=== PATIENT | female | born 1995 | race Caucasian/White ===

== ENCOUNTER 2022-06-19 03:49 | Emergency (ER) | payer MEDICAID ==
[~2022-06-19] VITALS: Ht 167.6 cm; Wt 67.1 kg
[2022-06-19 05:08] LABS: MEAN CORPUSCULAR HEMOGLOBIN 26.8 uug (24.7-32.8); MEAN CORPUSCULAR VOLUME 78.3 fL (75.5-95.3); PLATELET COUNT (AUTO) 370 K/uL (179-408)
[2022-06-19 05:15] LABS: CARBON DIOXIDE 30 mmol/L (21-32); CHLORIDE 100 mmol/L (98-107); CREATININE 1.1 mg/dL (0.6-1.3); GLUCOSE 152 mg/dL (74-106); POTASSIUM 3.5 mmol/L (3.5-5.1); UREA NITROGEN, BLOOD 27 mg/dL (7-18)
[2022-06-19 05:20] LABS: ALANINE AMINOTRANSFERASE 45 U/L (14-59); ALKALINE PHOSPHATASE 98 U/L (50-136); ASPARTATE AMINOTRANSFERASE 55 U/L (15-37); BILIRUBIN,DIRECT 0.1 mg/dL (0.0-0.2); BILIRUBIN,TOTAL 0.1 mg/dL (0.2-1.0); ETHANOL < 3 MG/DL (0-0)
[2022-06-19 05:24] LABS: ACETAMINOPHEN < 2.0 ug/mL (10-30)
--- NOTE | 2022-06-19 06:30 | NUR ---
Patient not cooperative for covid swab or obtaining urine sample.
--- NOTE | 2022-06-19 07:01 | NUR ---
Report given to Anival ZAZUETA.
--- NOTE | 2022-06-19 08:20 | NUR ---
Social Work consult was requested for a patient in the emergency room for mental health, homeless and substance abuse resources. Patient is a 26-year-old male. Patient presents with anxious mood and congruent affect. Patient states he does not have a primary contact. Patient states he is homeless, and JOSE MARIA provided the patient with homeless resources for [facility] [place] [address] [place] [address] ([phone]) and [facility] [address] [place] [address] ([phone]). JOSE MARIA gave resources for [address] [address]. Patient was appreciative of the resources. Patient signed the homeless waiver form, and a copy was placed in the chart. Patient denies suicidal or homicidal ideation. Patient states he wants to be discharged from the emergency room. JOSE MARIA provided the patient with mental health resources for [facility] [address] [place] [address] ([phone]). Patient states his plan for discharge is to follow up with the resources provided.
--- NOTE | 2022-06-19 08:33 | NUR ---
PT WAS RE-EVALUATED BY DR DAVIDSON. PT WAS D/C'd TO HOME AFTER CHECK INSPECTOR EVALUATED THE PT. D/C INSTRUCTIONS GIVEN TO THE PT BY CHECK INSPECTOR AND DR DAVIDSON.
[2022-06-19 08:34] VITALS: BP 136/78
== END 2022-06-19 09:07 | disposition home or self-care (01) ==
LOC: ER 03:52
DX: R45.851 Suicidal ideations (principal); F15.10 Other stimulant abuse, uncomplicated; I45.10 Unspecified right bundle-branch block; Z59.02 Unsheltered homelessness; F20.9 Schizophrenia, unspecified; F44.81 Dissociative identity disorder; F17.210 Nicotine dependence, cigarettes, uncomplicated
CPT/HCPCS: 36415; 85025; 93005; A4663; G0480